=== PATIENT | male | born 1950 | race Caucasian/White ===

== ENCOUNTER 2021-10-11 08:10 | Day surgery (SDC) | payer BC ==
[2021-10-08 16:29] VITALS: BMI 27.3
[2021-10-11] MEDS ORDERED: PROPOFOL 20 ML ONE ×2 (08:37)
[2021-10-11 09:39] VITALS: TEMP 99
[2021-10-11 10:01] VITALS: BP 128/75; PULSE 65
== END 2021-10-11 09:50 | disposition home or self-care (01) ==
LOC: FASU-ENDO 08:10
PROVIDERS: ATTEND Internal Medicine Gastroenterology
PROC: 0DJD8ZZ Inspection of Lower Intestinal Tract, Via Natural or Artificial Opening Endoscopic (ICD-10-PCS; principal; 2021-10-11 08:48)
DX: Z12.11 Encounter for screening for malignant neoplasm of colon (principal); K57.30 Diverticulosis of large intestine without perforation or abscess without bleeding; K64.0 First degree hemorrhoids

== ENCOUNTER → 2024-08-23 | Day surgery (SDC) | payer BC ==
[2024-08-16 16:22] VITALS: BMI 28.3
[~2024-08-23] MED LIST: LIDOCAINE HCL/PF 2% SDV 5ML VIAL ONE
[2024-08-23 09:47] VITALS: PULSE 60; RESP 16; TEMP 96.9
[2024-08-23 11:21] VITALS: BP 107/66
== END | disposition home or self-care (01) ==
LOC: FASU-ENDO 08:27
PROVIDERS: ATTEND Internal Medicine Gastroenterology
PROC: 0DB78ZX Excision of Stomach, Pylorus, Via Natural or Artificial Opening Endoscopic, Diagnostic (ICD-10-PCS; 2024-08-23)
PROC: 0DB68ZX Excision of Stomach, Via Natural or Artificial Opening Endoscopic, Diagnostic (ICD-10-PCS; 2024-08-23)
PROC: 0D738DZ Dilation of Lower Esophagus with Intraluminal Device, Via Natural or Artificial Opening Endoscopic (ICD-10-PCS; 2024-08-23)
PROC: 0DB98ZX Excision of Duodenum, Via Natural or Artificial Opening Endoscopic, Diagnostic (ICD-10-PCS; principal; 2024-08-23 09:14)
DX: K22.2 Esophageal obstruction (principal); K44.9 Diaphragmatic hernia without obstruction or gangrene; K31.89 Other diseases of stomach and duodenum
CPT/HCPCS: 88305-TC; 88342-TC